=== PATIENT | female | born 2000 | race Two or more races ===

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

== ENCOUNTER 2020-04-11 09:52 | Observation (INO) | payer MEDICAID ==
[2020-04-11] MEDS ORDERED: PREN27TA7 OR (10:37)
== END 2020-04-11 11:20 | disposition home or self-care (01) ==
LOC: LDRP 09:52
PROVIDERS: ADMIT Obstetrics & Gynecology; ATTEND Obstetrics & Gynecology
DX: O26.892 Other specified pregnancy related conditions, second trimester (principal); R10.10 Upper abdominal pain, unspecified; Z3A.20 20 weeks gestation of pregnancy
CPT/HCPCS: 59025; 81002; G0378

== ENCOUNTER 2020-08-18 15:12 | Observation (INO) | payer MEDICAID ==
[~2020-08-18] VITALS: Ht 149.9 cm; Wt 70.3 kg
[~2020-08-18 15:12] MED LIST: PREN27TA7 OR
== END 2020-08-18 20:30 | disposition home or self-care (01) ==
LOC: LDRP 15:12
PROVIDERS: ADMIT Specialist; ATTEND Specialist
DX: O62.9 Abnormality of forces of labor, unspecified (principal); O42.92 Full-term premature rupture of membranes, unspecified as to length of time between rupture and onset of labor; Z3A.39 39 weeks gestation of pregnancy
CPT/HCPCS: 59025; 76818; 81002; 84112; G0378; Q0114

== ENCOUNTER 2020-08-19 00:07 | Inpatient (IN) | payer MEDICAID ==
[2020-08-19] MEDS ORDERED: DERMOPLAST 60ML BOTTLE TOP PRN (01:30)
[2020-08-19] MEDS ORDERED: WITCH HAZEL-GLYCERIN PAD TOP PRN (01:30)
[2020-08-19] MEDS ORDERED: PROMETHAZINE HCL 25 MG/ML 1ML IM PRN (01:30)
[2020-08-19] MEDS ORDERED: PHISODERM TOP SOLN 240ML BTL TOP PRN (01:30)
[2020-08-19] MEDS ORDERED: BUTORPHANOL TARTRATE 2 MG/1 ML VIAL IV PRN (01:30)
[2020-08-19] MEDS ORDERED: LIDOCAINE 2%HCL (LOCAL ANESTH.) INJ 20ML MDV ONE (01:50)
[2020-08-19] MEDS ORDERED: LACT. RINGERS/OXYTOCIN 20UNITS 1,000 ML IV ONE (01:50)
[2020-08-19 03:25] LABS: Albumin 2.8 g/dL (3.4-5.0); BUN/Creatinine Ratio 15.8; Calcium 8.8 mg/dL (8.5-10.1); Potassium 3.6 mmol/L (3.5-5.1)
[2020-08-19] MEDS: LACTATED RINGER'S 1,000 ML IV SCH ×2 (03:26→04:45)
[2020-08-19 03:29] LABS: Basophils # (auto) 0 10 ^3/uL (0-0.2); Basophils % (auto) 0.2 % (0.0-2.0); Eosinophils # (auto) 0 10 ^3/uL (0-0.8); Eosinophils % (auto) 0.2 % (0.0-7.0); Hematocrit 37.3 % (36.0-46.0); Hemoglobin 12.7 g/dL (12.2-16.2); Lymphocytes # (auto) 2.1 10 ^3/uL (0.4-5.4); Lymphocytes % (auto) 13.9 % (10.0-50.0); Mean Corpuscular Hgb Conc. 34.2 g/dL (32.0-36.0); Monocytes # (auto) 0.5 10 ^3/uL (0-1.3); Neutrophils # (auto) 12.3 10 ^3/uL (1.6-8.6); Neutrophils % (auto) 82.7 % (37.0-80.0); Nucleated Red Blood Cells % 0.1 %; Platelet Count (auto) 280 10^3/uL (140-450); Red Blood Cells 4.38 10^6/uL (4.0-5.20); Red Cell Distribution Width 13.8 % (11.8-14.3); White Blood Cell 14.9 10^3/uL (4.4-10.8)
[2020-08-19 03:35] LABS: Bilirubin, Total 0.3 mg/dL (0.2-1.0); Total Protein 6.9 g/dL (6.4-8.2)
[2020-08-19 03:37] LABS: INR 0.91 (0.9-1.15); Partial Thromboplastin Time 23.9 sec (23.0-31.2)
[2020-08-19 07:00] VITALS: BP 117/70
[2020-08-19] MEDS: IBUPROFEN 600 MG TAB PO PRN ×2 (08:42→19:48)
[2020-08-19 11:00] VITALS: BP 120/74
[2020-08-19 15:00] VITALS: BP 124/70
[2020-08-19 19:00] VITALS: BP 106/75
[2020-08-19 23:01] VITALS: BP 97/58
[2020-08-20 02:49] VITALS: BP 110/68
[2020-08-20 07:04] VITALS: BP 114/70
[2020-08-20] MEDS: IBUPROFEN 600 MG TAB PO PRN (07:25)
[2020-08-21 06:06] LABS: RPR Non Reactive (Non Reactive)
== END 2020-08-20 09:00 | disposition home or self-care (01) | DRG 560 ==
LOC: LDRP 00:07 → OBSVTOIN 01:42 → LDRP 04:56
PROVIDERS: ADMIT Specialist; ATTEND Specialist
PROC: 10E0XZZ Delivery of Products of Conception, External Approach (ICD-10-PCS; principal; 2020-08-19)
PROC: 10907ZC Drainage of Amniotic Fluid, Therapeutic from Products of Conception, Via Natural or Artificial Opening (ICD-10-PCS; 2020-08-19)
PROC: 0W8NXZZ Division of Female Perineum, External Approach (ICD-10-PCS; 2020-08-19)
DX: O77.0 Labor and delivery complicated by meconium in amniotic fluid (principal); Z37.0 Single live birth; Z3A.39 39 weeks gestation of pregnancy; Z20.822 Contact with and (suspected) exposure to COVID-19
CPT/HCPCS: 36415; 59025; 59409; 80053; 81002; 85025; 85610; 85730; 86592; 86850; 86900; 86901; 87426; 96360; 96361; 96365; 96366; 96372; G0378; J2590

== ENCOUNTER 2020-11-02 21:23 | Emergency (ER) | payer MEDICAID ==
[~2020-11-02] VITALS: Ht 149.9 cm; Wt 57.6 kg
[2020-11-02 21:44] VITALS: BP 107/80
== END 2020-11-02 21:49 | disposition left against medical advice (07) ==
LOC: ER 21:23
DX: J02.9 Acute pharyngitis, unspecified (principal); H92.09 Otalgia, unspecified ear; R51.9 Headache, unspecified; Z53.21 Procedure and treatment not carried out due to patient leaving prior to being seen by health care provider